=== PATIENT | male | born 1995 | race Caucasian/White ===

== ENCOUNTER 2017-05-11 16:24 | Emergency (ER) | payer OTHER ==
[~2017-05-11] VITALS: Ht 177.8 cm; Wt 75.0 kg
[2017-05-11] MEDS ORDERED: ONDANSETRON 4 MG ORAL DISINTEGRATING TAB (S0181) PO ONE (18:15)
--- NOTE | 2017-05-11 19:30 | REP ---
Head CT without contrast: History: Trauma. Head injury. Findings: Bone window settings demonstrate an intact bony calvarium. Visualized paranasal sinuses are clear. No skull fracture is seen. On soft tissue window settings, lateral, third, fourth ventricles are normal in size and position. Zaldivar-white differentiation pattern is normal above and below the tentorium. There is no evidence of intracranial hemorrhage. A prominent superior cerebellar cistern is seen as a normal variant. No extra-axial fluid collection mass, infarct or midline shift is seen. Impression: No intracranial abnormality. Signed by Chin Shepherd MD 05/11/2017 07:42 P
--- NOTE | 2017-05-11 19:31 | REP ---
Right tib-fib series: Four views. History: Trauma. Findings: Four views of the right tibia and fibula are presented. These demonstrate normal bones, joints, and soft tissues. No fracture or subluxation is seen. Impression: Negative right tib-fib series. Signed by Chin Shepherd MD 05/11/2017 07:42 P
[2017-05-11 20:01] VITALS: BP 120/67
== END 2017-05-11 20:02 | disposition home or self-care (01) ==
LOC: M ED 16:24
DX: S00.81XA Abrasion of other part of head, initial encounter (principal); S80.811A Abrasion, right lower leg, initial encounter; S80.211A Abrasion, right knee, initial encounter; S80.212A Abrasion, left knee, initial encounter; S50.311A Abrasion of right elbow, initial encounter; V00.131A Fall from skateboard, initial encounter; Y92.410 Unspecified street and highway as the place of occurrence of the external cause; Y93.51 Activity, roller skating (inline) and skateboarding; Y99.9 Unspecified external cause status